=== PATIENT | female | born 1950 | race Caucasian/White ===

== ENCOUNTER 2018-11-04 21:14 | Emergency (ER) | payer OTHER, MEDICAID ==
[~2018-11-04] VITALS: Ht 172.7 cm; Wt 81.6 kg
[2018-11-05 00:56] VITALS: BP 143/69
== END 2018-11-05 01:30 | disposition home or self-care (01) ==
LOC: EDBD 21:14 → ER 21:17
DX: M25.062 Hemarthrosis, left knee (principal); E11.9 Type 2 diabetes mellitus without complications; I10 Essential (primary) hypertension; S82.042A Displaced comminuted fracture of left patella, initial encounter for closed fracture; W01.0XXA Fall on same level from slipping, tripping and stumbling without subsequent striking against object, initial encounter; Y99.8 Other external cause status; Y93.89 Activity, other specified; Y92.098 Other place in other non-institutional residence as the place of occurrence of the external cause
CPT/HCPCS: 73700